=== PATIENT | female | born 1950 | race Caucasian/White ===

== ENCOUNTER 2020-04-05 12:50 | Emergency (ER) | payer OTHER ==
[~2020-04-05] VITALS: Ht 167.6 cm; Wt 93.0 kg
[2020-04-05] MEDS ORDERED: NOHOMEMEDICATIONS (13:02)
[2020-04-05 13:53] LABS: HEMATOCRIT 41.9 % (37.0-47.0); HEMOGLOBIN 14.1 gm/dL (12.0-15.0); MCH 30.1 pg (26.0-34.0); MCHC 33.6 g/dL (28.0-37.0); MCV 89.5 fL (80.0-100.0); PLATELET COUNT 161 thou/uL (150-400); RBC 4.68 mil/uL (4.20-5.00); RDW 13.2 % (10.5-14.5); WBC 2.4 thou/uL (4.0-11.0)
[2020-04-05 14:20] LABS: ABSOLUTE NEUTROPHILS 1.4 thou/uL (1.4-8.2); ANISOCYTOSIS 1+
[2020-04-05 14:40] LABS: CALCIUM 7.9 mg/dL (8.5-10.1); CREATININE 0.9 mg/dL (0.6-1.0); POTASSIUM 3.4 mmol/L (3.5-5.1)
[2020-04-05 14:46] LABS: ALBUMIN 3.2 g/dL (3.4-5.0); TOTAL BILIRUBIN 0.4 mg/dL (0.2-1.0); TOTAL PROTEIN 6.7 g/dL (6.4-8.2)
[2020-04-05 15:21] VITALS: BP 121/69
== END 2020-04-05 15:25 | disposition home or self-care (01) ==
LOC: ER 12:50
PROVIDERS: Nurse Practitioner
DX: U07.1 COVID-19 (principal); B34.9 Viral infection, unspecified; R11.2 Nausea with vomiting, unspecified; Z98.51 Tubal ligation status

== ENCOUNTER 2020-04-10 07:26 | Emergency (ER) | payer OTHER ==
[~2020-04-10] VITALS: Ht 167.6 cm; Wt 99.8 kg
[~2020-04-10 07:26] MED LIST: NOHOMEMEDICATIONS
[2020-04-10 08:23] LABS: ABSOLUTE NEUTROPHILS 5.9 thou/uL (1.4-8.2); BASOPHILS 0.1 % (0.0-2.0); HEMATOCRIT 41.4 % (37.0-47.0); HEMOGLOBIN 14.1 gm/dL (12.0-15.0); LYMPHOCYTES 9.2 % (24.0-44.0); MCH 30.4 pg (26.0-34.0); MCHC 34.1 g/dL (28.0-37.0); MONOCYTES 7.2 % (1.0-8.0); PLATELET COUNT 302 thou/uL (150-400); POLYS 83.5 % (36.0-66.0); RBC 4.65 mil/uL (4.20-5.00); RDW 13.8 % (10.5-14.5); WBC 7.1 thou/uL (4.0-11.0)
[2020-04-10 08:29] LABS: BE(vivo) 1.9 mmol/L (-2 to +3); HCO3 25.1 mmol/L (22.0-26.0); PCO2 35.1 mmHg (35.0-45.0); PO2 94.3 mmHg (80.0-100.0); pH 7.472 (7.360-7.450); sO2 97.6 % (92.0-98.0)
--- NOTE | 2020-04-10 08:38 | EKG ---
[facility] [address] [place] [address] ELECTROCARDIOGRAM REPORT Name: UMA MATTHEW Room #: PRE [facility]..#: [id number] Admission: Attend Phys: Discharge: Date of : 52 Report #: [id number] THIS REPORT FOR: cc: FAM - Family physician unknown FAM - Family physician unknown Dax Villalta MD [facility] ~ THIS REPORT FOR: //name// [facility] ED Test Date: 2020-04-10 Test Time: 08:02:52 Pat Name: UMA MATTHEW Department: Room: Gender: F Certified Hand Therapist: : 1950 Requested By: Josue Terry Order Number: [id number] MD: Dax Villalta Measurements Intervals [place] Rate: 85 P: -3 ND: 153 QRS: 11 QRSD: 107 T: 4 QT: 372 QTc: 443 Interpretive Statements Sinus rhythm Borderline T abnormalities, inferior leads No previous ECG available for comparison Electronically Signed On 04-10-2020 8:38:16 CDT by Dax Villalta [email or web address] <ELECTRONICALLY SIGNED> By: Dax Villalta MD, FACC 04/10/20 0838 1 1 Dax Villalta MD, [facility] /EPI
[2020-04-10 08:55] LABS: ANION GAP 11 mmol/L (7-16); BUN 17 mg/dL (7-18); CHLORIDE 99 mmol/L (98-107); CO2 25 mmol/L (21-32); GLUCOSE 115 mg/dL (74-106); POTASSIUM 3.2 mmol/L (3.5-5.1); SODIUM 135 mmol/L (136-145)
[2020-04-10 09:05] LABS: ALBUMIN 2.7 g/dL (3.4-5.0); LIPASE 185 U/L (73-393); SGOT 103 U/L (15-37); SGPT 58 U/L (30-65); TOTAL BILIRUBIN 0.4 mg/dL (0.2-1.0); TOTAL PROTEIN 6.8 g/dL (6.4-8.2); TROPONIN-I <0.06 ng/mL (<0.06)
[2020-04-10 12:18] LABS: ALBUMIN 2.7 g/dL (3.4-5.0); TOTAL PROTEIN 6.3 g/dL (6.4-8.2)
[2020-04-10 12:44] LABS: TSH 1.427 uIU/mL (0.358-3.740)
[2020-04-10 15:49] LABS: URINE BILIRUBIN NEGATIVE (Negative); URINE BLOOD NEGATIVE (Negative); URINE CLARITY CLEAR; URINE COLOR YELLOW; URINE GLUCOSE-RANDOM* NEGATIVE (Negative); URINE KETONES TRACE (Negative); URINE LEUKOCYTES-REFLEX NEGATIVE (Negative); URINE NITRITE-REFLEX NEGATIVE (Negative); URINE PROTEIN (DIPSTICK) 1+ (Negative); URINE SPECIFIC GRAVITY >= 1.030 (1.005-1.035); URINE UROBILINOGEN 0.2 E.U./dl (0.2-1.0)
[2020-04-10 16:10] LABS: BACTERIA-REFLEX 1-9 Few /HPF (None Seen); CASTS None Seen /LPF (None Seen); CRYSTALS None Seen /LPF (None Seen); SQUAMOUS 4-10 Moderate /LPF (0-3); URINE RBC None Seen /HPF (0-2); URINE WBC-REFLEX 0-5 Rare /HPF (0-5)
[2020-04-11 06:01] LABS: HEMATOCRIT 39.3 % (37.0-47.0); MCH 29.9 pg (26.0-34.0); MCHC 33.2 g/dL (28.0-37.0); MCV 89.9 fL (80.0-100.0); RBC 4.37 mil/uL (4.20-5.00); RDW 13.7 % (10.5-14.5); WBC 3.8 thou/uL (4.0-11.0)
[2020-04-11 06:19] LABS: CALCIUM 7.9 mg/dL (8.5-10.1); CREATININE 0.9 mg/dL (0.6-1.0); MAGNESIUM 2.5 mg/dL (1.8-2.4); POTASSIUM 4.1 mmol/L (3.5-5.1)
[2020-04-11 08:24] VITALS: BP 103/58
[2020-04-11 22:06] LABS: HIV ANTIBODY Non Reactive (Non Reactive)
[2020-04-16 15:37] LABS: T-SPOT.TB Negative
== END 2020-04-11 08:24 | disposition short-term general hospital (02) ==
LOC: ER 07:26
PROVIDERS: Emergency Medicine; Internal Medicine; Specialist
DX: U07.1 COVID-19 (principal); J12.89 Other viral pneumonia; J96.01 Acute respiratory failure with hypoxia; E87.5 Hyperkalemia; A08.39 Other viral enteritis; E87.6 Hypokalemia; E43 Unspecified severe protein-calorie malnutrition; R11.2 Nausea with vomiting, unspecified; R19.7 Diarrhea, unspecified; E66.9 Obesity, unspecified; Z68.35 Body mass index [BMI] 35.0-35.9, adult; Z98.51 Tubal ligation status; Z98.890 Other specified postprocedural states; Z29.9 Encounter for prophylactic measures, unspecified

== ENCOUNTER → 2020-10-09 | Outpatient (CLI) | payer OTHER | LOC: LAB 10:50 | PROVIDERS: ATTEND Nurse Practitioner | DX: Z20.822 Contact with and (suspected) exposure to COVID-19 (principal) ==

== ENCOUNTER → 2020-10-16 | Outpatient (CLI) | payer OTHER ==
--- NOTE | 2020-10-24 20:52 | PFR/MVV ---
[facility] [address] [address] PULMONARY FUNCTION MVV/REPORT Name: TIFFUMA Petr Room #: REG LOIDA Clarke.#: [id number] Admission: 10/16/20 Attend Phys: Becki Rasmussen DNP Discharge: Date of : 52 Report #: [id number] THIS REPORT FOR: //name// >> SPIROMETRY: (BTPS) Height: 66 in cm Weight: 215 lbs kg Exam Date: 10/16/20 PRE-RX POST-RX PRED BEST %PRED BEST %PRED %CHG FVC LITERS . 3.08 . 3.49 . 113 . 3.33 . 108 . -5 FEV1 LITERS . 2.22 . 2.85 . 128 . 2.81 . 127 . -1 FEV1/FVC % . 72 . 82 . 114 . 85 . 118 . 4 NVD48-54% L/Sec . 2044 . 3.34 . 137 . 3.65 . 150 . 9 PEF L/SEC . 5.75 . 7.02 . 122 . 6.67 . 116 . -5 FEF50/FIF50 UNITLESS . <1.00 . 1.43 . . 1.16 . . -19 MVV L/Min . 85 . 69 . 81 f 1/Min . . 200 . >> LUNG VOLUMES: (BTPS) PRE-RX POST-RX PRED AVG %PRED AVG %PRED %CHG VC Liters . 3.08 . 5.10 . 165 . . . TLC Liters . 5.22 . 6.42 . 123 . . . RV Liters . 2.09 . 1.32 . 63 . . . RV/TLC % . 40 . 21 . 52 . . . FRC PL Liters . 2.51 . 2.61 . 104 . . . FRC N2 Liters . 2.51 . . . . . ERV Liters . 1.05 . 1.28 . 123 . . . IC Liters . 2.09 . 2.98 . 143 . . . >> DIFFUSION: DLCO ml/Min/mmHg . 24.4 . 19.1 . 78 . . . DL Trisha ml/Min/mmHg . 24.4 . 19.1 . 78 . . . DLCO/VA ml/Min/mmHg . 3.60 . 4.69 . 130 . . . VA Liters . . 4.07 . . . . COMMENTS: COMMENTS: >> RESISTANCE: [facility] [address] [place] [address] PULMONARY FUNCTION MVV/REPORT Name: UMA MATTHEW Room #: REG [facility].#: [id number] Admission: 10/16/20 Attend Phys: Becki Rasmussen DNP Discharge: Date of : 52 Report #: [id number] PRE-RX PRED AVG %PRED Raw Total cmH20/L/Sec . . 2.71 . Raw Insp cmH20/L/Sec . . 0.12 . Raw Exp cmH20/L/Sec . . 6.79 . Raw cmH20/L/Sec . 1.54 . 0.66 . 43 Gaw L/Sec/cmH20 . 0.603 . 1.522 . 252 sRaw cmH20 Sec . 3.87 . 1.52 . 39 sGaw l/cmH20 Sec . 0.259 . 0.657 . 254 Vtq Liters . . 2.32 . # = OUTSIDE 95% CONFIDENCE INTERVAL CALIBRATION: PRED: 3.00 ACTUAL: EXP 3.01 INSP 3.02 [place] [address]-06 [place] [address] N-1804-4 >> INTERPRETATION/IMPRESSION: DATE OF SERVICE: 10/17/2020 FEV1 is 2.5 liters (128% predicted), FVC 3.49 liters (____), FEV1/FVC ratio is 82%. Post-bronchodilator therapy, he is not significant. Total lung capacity is 6.42 liters, 123% and elevated. Residual volume is 1.32 liters (63%). Diffusing capacity is 78% and normal. IMPRESSION: Pulmonary function studies are normal. There is no significant response for bronchodilator therapy. Lung volumes are slightly increased. Diffusing capacity is normal. <ELECTRONICALLY SIGNED> By: Von Ruffin MD 10/24/202051 Von Ruffin MD /nt
== END ==
LOC: PUL 10-15 10:32
PROVIDERS: ATTEND Nurse Practitioner
DX: U07.1 COVID-19 (principal)